=== PATIENT | male | born 1960 | race Caucasian/White ===

== ENCOUNTER → 2020-05-24 | Day surgery (SDC) | payer OTHER ==
--- NOTE | 2020-05-26 13:06 | RAD REPORT ---
EXAM DESCRIPTION: - FINE NEEDLE ASPIRATION 2ND LES - 05/24/2020 11:46 am CLINICAL HISTORY: THYROID RT NODULE COMPARISON: Thyroid Para Parotid Gland dated 05/21/2020 TECHNIQUE: The patient presents for ultrasound-guided fine-needle aspiration of previously identifie d large right thyroid nodules. Prior imaging study was reviewed. The procedure, risks and alternatives were discussed with the patient in detail. Both oral and writte n consent were obtained. The patient had no contraindicated allergy or medication history. The anterolateral right neck was prepped and draped in the usual sterile fashion. Proximity of the no dules allowed for single skin puncture site. The skin was prepped and draped in the usual sterile fas hion. Under ultrasound guidance skin and deeper tissues down to each nodule anesthetized with 1% lido shakira. Aspiration was initially performed on the 3.5 cm heterogeneous solid nodule inferior right thyroid lo be. Under direct sonographic guidance a 25 gauge needle was advanced through the skin and soft tissue s and placed into the nodule. Multiple to and fro excursions of the needle performed. The needle was removed and the aspiration procedure was repeated through the same access site with three additional 25 gauge needles placed within different locations of this nodule. Using the same skin access site the 3.7 cm heterogeneous solid nodule in the superior right lobe was then aspirated. A 25 gauge needle was advanced and placed into the nodule. Multiple to and fro excurs ions of the needle tip performed of the needle removed. Three additional aspirations of the superior right nodule performed with placement in different portions of the nodule. At the conclusion of the procedure there was no hematoma within or adjacent to either of the nodules. Hemostasis was obtained at the skin surface and a sterile bandage placed. Post-procedure care and pr ecaution instructions were given to the patient. All aspirated material was given to pathology for histology/cytology assessment. IMPRESSION: 1. Ultrasound-guided fine-needle aspiration was performed of the two right thyroid nodul es as detailed. 2. There were no immediate complications. Post procedure care and precaution instructions were given to the patient.
--- NOTE | 2020-05-26 17:18 | RAD REPORT ---
EXAM DESCRIPTION: US - Guided FNA Non Breast - 05/24/2020 11:47 am CLINICAL HISTORY: D44.0 COMPARISON: FINE NEEDLE ASPIRATION 2ND LES dated 05/24/2020 TECHNIQUE: The patient presents for ultrasound-guided fine-needle aspiration of two large solid nodu les in the right lobe of the thyroid gland. A single combine report for the two aspiration procedures detailed on the initial report. IMPRESSION: 1. Fine-needle aspiration was performed under ultrasound guidance of two right thyroid l obe solid masses. 2. A single procedure report was generated for the two aspirations.
== END ==
LOC: FNA 10:24
PROVIDERS: ATTEND Family Medicine
PROC: 0G9H3ZX Drainage of Right Thyroid Gland Lobe, Percutaneous Approach, Diagnostic (ICD-10-PCS; principal; 2020-05-24)
PROC: BG44ZZZ Ultrasonography of Thyroid Gland (ICD-10-PCS; 2020-05-24)
DX: D44.0 Neoplasm of uncertain behavior of thyroid gland (principal)
CPT/HCPCS: 10006; 88162

== ENCOUNTER 2024-01-24 22:51 | Emergency (ER) | payer OTHER ==
[2024-01-25] MEDS ORDERED: HYDROCODONE/APAP 7.5/325 MG TAB ONE (00:05)
--- NOTE | 2024-01-25 00:32 | ER ---
Nurse's Notes 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 Superficial abrasion and bruising noted to R upper arm, abrasion noted to R upper back. Pt c/o pain to tailbone and some numbness to anterior aspect of L thigh. Coronavirus screen: Client denies travel out of the [place] in the last 14 days. Ebola Screen: Patient denies exposure to infectious person. Patient denies travel to an Ebola-affected area in the 21 days before illness onset. Initial Sepsis Screen: Does the patient meet any 2 criteria? No. Patient's initial sepsis screen is negative. Does the patient have a suspected source of infection? No. Patient's initial sepsis screen is negative. Risk Assessment: Do you want to hurt yourself or someone else? Patient reports no desire to harm self or others. Onset of symptoms was January 24, 2024. 23:17 Method Of Arrival: Ambulatory ss 23:17 Acuity: GABRIEL 3 ss Triage Assessment: 23:22 General: Appears in no apparent distress. Behavior is calm, cooperative. Neuro: Level ss of Consciousness is awake, alert, obeys commands. Respiratory: Airway is patent Respiratory effort is even, unlabored, Respiratory pattern is regular, symmetrical. Derm: Skin is pink, warm \T\ dry. normal. Historical: - Allergies: 23:20 No Known Allergies; ss - PMHx: 23:22 Hypertensive disorder; ss - Immunization history:: Adult Immunizations up to date, Last tetanus immunization: up to date. - Infectious Disease History:: Denies. - Social history:: Smoking status: Patient denies any tobacco usage or history of. Screenin/20 00:25 [facility] ED Fall Risk Assessment (Adult) History of falling in the last 3 months, al5 including since admission Yes- single mechanical fall (1 pt) Confusion or Disorientation No (0 pts) Intoxicated or Sedated No (0 pts) Impaired Gait No (0 pts) Mobility Assist Device Used No (0 pt) Altered Elimination No (0 pt) Score/Fall Risk Level 0 - 2 = Low Risk Oriented to surroundings, Maintained a safe environment, Hourly rounding (assess needs \T\ fall precautionary measures) done. Abuse screen: Denies threats or abuse. Denies injuries from another. Nutritional screening: No deficits noted. Tuberculosis screening: No symptoms or risk factors identified. Assessment: 00:25 General: Appears in no apparent distress. uncomfortable, Behavior is calm, cooperative. al5 Pain: Complains of pain in back and right subscapular area and right arm and right tricep and lumbar area. Neuro: Level of Consciousness is awake, alert, obeys commands, Oriented to person, place, time, situation. Cardiovascular: Patient's skin is warm and dry. Respiratory: Airway is patent Respiratory effort is even, unlabored, Respiratory pattern is regular, symmetrical. GI: No signs and/or symptoms were reported involving the gastrointestinal system. : No signs and/or symptoms were reported regarding the genitourinary system. EENT: No signs and/or symptoms were reported regarding the EENT system. Derm: Wound noted right subscapular area and right arm and right tricep. Musculoskeletal: Reports pain in back and right subscapular area and right arm and right tricep and lumbar area. Vital Signs: 01/23 23:17 BP 156 / 105; Pulse 72; Resp 16; Temp 98.5(TE); Pulse Ox 95% on R/A; Weight 97.52 kg; ss Height 5 ft. 9 in. ; Pain 08/14; 01/24 00:30 BP 123 / 98; Pulse 73; Resp 16; Pulse Ox 100% on R/A; pc2 01/23 23:17 Body Mass Index 31.75 (97.52 kg, 175.26 cm) 01/23 23:17 Pain Scale: Adult ED Course: 01/23 22:53 Patient arrived in ED. jj6 23:04 Rylee Hammond F[facility]-C [facility] kb 23:04 Franklin Rehman MD is Attending Physician. kb 23:20 Triage completed. ss 23:22 Arm band placed on right wrist. ss 23:24 Marie Choudhury, RN is Primary Nurse. al5 23:43 CT Traumagram (Head C Spine CAP wo con) In Process Unspecified. EDMS 01/24 00:26 Patient has correct armband on for positive identification. Bed in low position. Call al5 light in reach. Side rails up X2. Provided Education on: processes and procedures. 00:26 No provider procedures requiring assistance completed. Patient did not have IV access al5 during this emergency room visit. 01:17 Humerus Right XRAY In Process Unspecified. EDMS Administered Medications: 00:08 Drug: Hydrocodone-Acetaminophen PO (7.5 mg-325 mg) 1 tabs PO once Route: PO; al5 00:38 Follow up: Response: No adverse reaction; RASS: Alert and Calm (0) pc2 Medication: 00:26 VIS not applicable for this client. al5 Outcome: 00:32 Discharge ordered by MD. kb 00:49 Discharged to home ambulatory, with family, pc2 00:49 Condition: stable 00:49 Discharge instructions given to patient, Instructed on discharge instructions, follow up and referral plans. medication usage, Demonstrated understanding of instructions, follow-up care, medications, Prescriptions given X 2, 00:54 Patient left the ED. pc2 Signatures: Dispatcher [employer] EDMS Rylee Hammond, ROLL OVER LOADER-C ROLL OVER LOADER-Christel Garner, EUSEBIO RN Rita Lepe jj6 Marie Choudhury, RN RN al5 Jodie Diaz, RN RN pc2
--- NOTE | 2024-01-25 00:32 | EDPHYS ---
Physician Documentation [facility] Name: Anthony Krishna Age: 63 yrs Sex: Male : 1960 Arrival Date: 01/24/2024 Time: 22:51 Bed 13 Private MD: ED Physician Franklin Rehman HPI: 01/23 23:27 This 63 yrs old Male presents to ER via Ambulatory with complaints of Fall Injury. kb 23:27 Pt is a 63 year old male who presents for pain to back and right arm that started after kb falling about 1.5 hours ago. 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 Denies LOC. States he is not sure if he hit his head or not. Ambulates with steady gait. . Historical: - Allergies: 23:20 No Known Allergies; ss - PMHx: 23:22 Hypertensive disorder; ss - Immunization history:: Adult Immunizations up to date, Last tetanus immunization: up to date. - Infectious Disease History:: Denies. - Social history:: Smoking status: Patient denies any tobacco usage or history of. ROS: 23:26 Constitutional: As per HPI kb Exam: 23:25 Constitutional: This is a well developed, well nourished patient who is awake, alert, kb and in no acute distress. Head/Face: Normocephalic, atraumatic. ENT: Moist Mucous membranes Cardiovascular: Regular rate Respiratory: Respirations even and unlabored. No increased work of breathing. Talking in full sentences Abdomen/GI: Soft, non-tender. No distention Neuro: Awake and alert, GCS 15, oriented to person, place, time, and situation. Moves all extremities. Normal gait. 23:25 Back: pain, that is moderate, of the lumbar area, 23:25 Musculoskeletal/extremity: Extremities: grossly normal except: noted in the right tricep: abrasion, contusion, ecchymosis, pain, tenderness, ROM: intact in all extremities, Circulation is intact in all extremities. Sensation intact. 23:25 Skin: injury, abrasion(s), moderate sized abrasion noted, of the right subscapular area, Vital Signs: 23:17 BP 156 / 105; Pulse 72; Resp 16; Temp 98.5(TE); Pulse Ox 95% on R/A; Weight 97.52 kg; ss Height 5 ft. 9 in. ; Pain 3/10; 01/24 00:30 BP 123 / 98; Pulse 73; Resp 16; Pulse Ox 100% on R/A; pc2 01/23 23:17 Body Mass Index 31.75 (97.52 kg, 175.26 cm) ss 01/23 23:17 Pain Scale: Adult ss MDM: 01/23 23:04 Patient medically screened. kb 23:26 Differential diagnosis: abrasion, closed head injury, contusion, fracture, sprain, kb strain. Data reviewed: vital signs, nurses notes. 01/24 00:31 Independent interpretation of the following test(s) in the Emergency Department X-Ray: kb My interpretation is humerus x-ray negative for fracture. Counseling: I had a detailed discussion with the patient and/or guardian regarding the historical points, exam findings, and any diagnostic results supporting the discharge/admit diagnosis, radiology results, the need for outpatient follow up, a family practitioner, to return to the emergency department if symptoms worsen or persist or if there are any questions or concerns that arise at home. 01/23 23:10 Order name: CT Traumagram (Head C Spine CAP wo con) kb 01/23 23:10 Order name: Humerus Right XRAY kb Administered Medications: 00:08 Drug: Hydrocodone-Acetaminophen PO (7.5 mg-325 mg) 1 tabs PO once Route: PO; al5 00:38 Follow up: Response: No adverse reaction; RASS: Alert and Calm (0) pc2 Disposition: 02:41 Co-signature as Attending Physician, Franklin Rehman MD I reviewed the patient's care rt provided by the Advanced Practice Provider and agree with the diagnosis and treatment plan. Disposition Summary: 01/25/24 00:32 Discharge Ordered Notes: Location: Home kb Condition: Stable kb Diagnosis - Fall (on)(from) incline kb - Low back pain kb - Abrasion of right back wall of thorax kb - Contusion of right upper arm kb - Paresthesia of skin - left lateral thigh kb Followup: kb - With: Emergency Department - When: As needed - Reason: Worsening of condition Followup: kb - With: Private Physician - When: 2 - 3 days - Reason: Recheck today's complaints, Continuance of care, Re-evaluation by your physician Discharge Instructions: - Discharge Summary Sheet kb - Musculoskeletal Pain kb Forms: - Medication Reconciliation Form kb - Antibiotic Education kb - Prescription Opioid Use kb - Patient Portal Instructions kb - Leadership Thank You Letter kb Prescriptions: - Diclofenac Sodium 75 mg Oral tablet, delayed release (enteric coated) - take 1 tablet ORAL route 2 times per day As needed; 30 tablet; Refills: 0, kb Product Selection Permitted - orphenadrine citrate 100 mg Oral Tablet Sustained Release - take 1 tablet ORAL route 2 times per day As needed; 20 tablet; Refills: 0, kb Product Selection Permitted Signatures: Dispatcher [employer] EDMS Rylee Hammond, KITCHEN CLEANER-C KITCHEN CLEANER-Christel Garner, RN RN ss Franklin Rehman MD MD rt Marie Choudhury RN RN al5 Jodie Diaz RN pc2 Corrections: (The following items were deleted from the chart) 01/23 23:10 23:10 Humerus Right+[id number].RAD.[email or web address] ordered. EDMS EDMS
[2024-01-25 01:20] VITALS: TEMP 98.5
[2024-01-25 01:21] VITALS: BP 123/98; O2SAT 100
--- NOTE | 2024-01-25 21:02 | RAD REPORT ---
EXAM DESCRIPTION: XR Right Humerus, 2 Views CLINICAL HISTORY: Pain. TECHNIQUE: Frontal and lateral views of the right humerus. COMPARISON: No relevant prior studies available. FINDINGS: Bones/joints: Unremarkable. No acute fracture. No dislocation. Soft tissues: Unremarkable. IMPRESSION: No acute injury. Electronically signed by: Franki Baxter MD 01/25/2024 01:43 AM CDT RP Due to temporary technical issues with the PACS/Fluency reporting system, reports are being signed by the in house radiologists without review as a courtesy to insure prompt reporting. The interpreting radiologist is fully responsible for the content of the report.
--- NOTE | 2024-01-25 21:03 | RAD REPORT ---
EXAM DESCRIPTION: Head C Spine Cap Elizabeth Nelson 01/25/2024 12:09 AM CDT CLINICAL HISTORY: 63 years, Male, TRAUMA COMPARISON: None FINDINGS: Multiple transaxial tomograms of the brain were obtained from the base of the skull to the vertex without contrast. Multiple axial CT images through the cervical spine were obtained at 2 mm slice thickness at 2 mm int erval reconstruction. In addition 2-D multiplanar reformats and the sagittal coronal plane were perfo rmed and reviewed. Axial images through the chest, abdomen and pelvis were generated utilizing 2 mm slice thickness at 2 mm interval reconstruction without the administration of IV contrast. An individualized dose optimization technique, Automated Exposure Control, was utilized for the perfo rmed procedure. CT head: Brain: Brain parenchyma as well as the casiano-white matter differentiation demonstrate to be within nor mal limits. There is no evidence for acute intraparenchymal hemorrhage. There is no midline shifts an d/or mass effect. No focal areas of hypodensities Ventricles: Lateral ventricles and cisterns displace normal appearance. Vasculature: No visualized abnormalities in the arteries or dural venous sinuses. Scalp/skull: The calvarium demonstrate to be intact with no evidence for acute bony injuries. Sinuses: The visualized paranasal sinuses and mastoid air cells demonstrate to be clear. Orbits: No significant abnormalities in the visualized orbital structures. CT C-spine: Curvature: The lordotic curve is preserved. The alignment, vertebral body heights, and disc spaces ar e normal. Bones: There is no evidence of fracture or subluxation. Discs: No significant degenerative changes. There is no evidence for significant spinal canal narrowing and/or stenosis. Joints: There is minimal uncovertebral degenerative changes C3-C5. Soft tissues: There is no prevertebral soft tissue swelling. Sagittal coronal reformatted images demonstrate no subluxation or bony abnormalities. Lung apices: The lung apices demonstrate to be within normal limits. Chest: Lower neck: Visualized thyroid gland and soft tissues are normal. No adenopathy. Lungs: The lung parenchyma demonstrate to be clear. No evidence of airspace or interstitial process. No significant pulmonary nodules and/or masses identified. No focal areas of consolidation. Airways: The trachea mainstem bronchus demonstrate to be unremarkable. Pleural: There are no pleural effusion. No evidence for pneumothorax. Hemidiaphragms are normally pos itioned. Mediastinum and lymph nodes: Calcified granuloma within the left hilum and subcarinal region No signi ficant mediastinal and/or hilar lymphadenopathy. The axillary regions demonstrate to be clear. Heart: Normal size. No pericardial thickening or effusion. Coronary: No significant coronary artery calcifications. Aorta: The thoracic aorta demonstrate to be within normal limits. No evidence for aneurysm. Pulmonary arteries: The pulmonary arteries were not evaluated due to lack of IV contrast. Osseous structures and chest wall: The bones are demineralized. The visualized portions of the clavic les, humeral heads and bilateral scapulas demonstrate to be within normal limits. No evidence for acu te bony injuries. The sternum, thoracic spine, spinous process and bilateral ribs demonstrate to be within normal limit s. No evidence for acute bony injuries. Abdomen and pelvis: Liver: Grossly the unopacified liver demonstrates to be normal, no focal lesions are identified. Gallbladder: Grossly the unopacified gallbladder demonstrate to be normal. Adrenal glands: Grossly the unopacified adrenal glands demonstrate to be normal. Pancreas: Grossly the unopacified pancreas demonstrate to be normal Spleen: The spleen demonstrate to be normal. Punctate calcified splenic granulomas. Kidneys: Grossly the unopacified kidneys demonstrate to be within normal limits. There is no eviden ce for nephrolithiasis and/or hydronephrosis. Small parapelvic renal cysts largest one lower pole lef t kidney measuring 2.4 cm image 90 GI: Grossly the unopacified stomach, small bowel and large bowel demonstrate to be within normal limi ts. No evidence for bowel dilatation and/or free air. The appendix is normal. The left-sided colon de monstrate to be decompressed with no gross abnormalities. : The urinary bladder demonstrate to be partially distended. Genitalia: The prostate gland demonstrate to be prominent perhaps related to BPH. Abdominal aorta: The aorta demonstrate demonstrate to be within normal limits. Retroperitoneum: There is no retroperitoneal lymphadenopathy. There is no evidence for ascites and/or retroperitoneal hemorrhage. Bones: The vertebral bodies of the lumbar spine demonstrate to be within normal limits. No evidence f or acute fractures. The spinous processes, transverse processes demonstrate to be unremarkable. The s acrum, sacroiliac joint, iliac bones, superior and inferior pubic rami as well as bilateral hip joint s demonstrate to be within normal limits. No evidence for acute bony injuries. There is minimal degenerative changes at L5/S1 Soft tissues: The rest of the soft tissue and bony structures are within normal limits. IMPRESSION: No evidence for acute traumatic injury to the head and cervical spine. Degenerative disc disease at C5/C6 and C6/C7. Left Bosniak I/Bosniak II benign renal cyst measuring 2.4 cm. No follow-up imaging is recommended. JACR 2017; [id number], Management of the Incidental Renal Mass on CT, [employer] 2020; [id number], B osniak Classification of Cystic Renal Masses, Version 2019. No evidence for acute traumatic injury to the chest, abdomen, or pelvis. Electronically signed by: Pascual Johnson MD 01/25/2024 12:18 AM CDT RP Due to temporary technical issues with the PACS/Fluency reporting system, reports are being signed by the in house radiologists without review as a courtesy to insure prompt reporting. The interpreting radiologist is fully responsible for the content of the report.
== END 2024-01-25 00:54 | disposition home or self-care (01) ==
LOC: ER 22:51
DX: S20.411A Abrasion of right back wall of thorax, initial encounter (principal); S40.021A Contusion of right upper arm, initial encounter; R20.2 Paresthesia of skin; W10.2XXA Fall (on)(from) incline, initial encounter; Y93.89 Activity, other specified; Y92.814 Boat as the place of occurrence of the external cause; Y99.0 Civilian activity done for income or pay; I10 Essential (primary) hypertension
CPT/HCPCS: 70450; 71250; 72125